=== PATIENT | male | born 1960 | race Two or more races ===

== ENCOUNTER → 2017-06-28 | Outpatient (REF) | payer MEDICAID, SELFPAY ==
[2017-06-28 17:00] LABS: ALBUMIN/GLOBULIN RATIO 1.25 (1.00-1.93); ALKALINE PHOSPHATASE 78 U/L (45-117); ALT/SGPT 26 U/L (12-78); ANION GAP 8 MEQ/L (8-16); AST/SGOT 15 U/L (15-37); BILIRUBIN,TOTAL 0.4 MG/DL (0.2-1.0); BLOOD UREA NITROGEN 18 MG/DL (7-18); CALCIUM LEVEL 8.9 MG/DL (8.5-10.1); CARBON DIOXIDE LEVEL 30 MEQ/L (21-32); CHLORIDE LEVEL 106 MEQ/L (98-107); CHOLESTEROL LEVEL 201 MG/DL (<200); CREATININE FOR GFR 0.75 MG/DL (0.70-1.30); GLOMERULAR FILTRATION RATE > 60.0 (>56); GLUCOSE, FASTING 131 MG/DL (70-105); POTASSIUM SERUM 3.8 MEQ/L (3.5-5.1); SODIUM LEVEL 144 MEQ/L (136-145); TOTAL PROTEIN 7.2 GM/DL (6.4-8.2); TRIGLYCERIDES LEVEL 138 MG/DL (<150)
[2017-06-28 19:00] LABS: MEAN CORPUSCULAR HEMOGLOBIN 34.1 pg (27.0-33.0); MEAN CORPUSCULAR HGB CONC 35.9 g/dl (32.0-36.5); MEAN CORPUSCULAR VOLUME 95.1 fl (80.0-96.0); RED CELL DISTRIBUTION WIDTH 11.7 % (11.5-14.5); WHITE BLOOD COUNT 9.2 K/mm3 (4.0-10.0)
== END ==
LOC: M SFHCLERA 14:51
PROVIDERS: ATTEND Family Medicine
DX: I61.9 Nontraumatic intracerebral hemorrhage, unspecified (principal); E11.21 Type 2 diabetes mellitus with diabetic nephropathy; I10 Essential (primary) hypertension

== ENCOUNTER → 2017-07-12 | Outpatient (REF) | payer MEDICAID, SELFPAY | LOC: M SFHCLERA 14:19 | PROVIDERS: ATTEND Family Medicine | DX: Z11.1 Encounter for screening for respiratory tuberculosis (principal) ==

== ENCOUNTER → 2017-10-24 | Outpatient (REF) | payer MEDICAID ==
[2017-10-24 18:07] LABS: HEMOGLOBIN 15.2 g/dl (14.0-18.0); MEAN CORPUSCULAR HEMOGLOBIN 32.7 pg (27.0-33.0); MEAN CORPUSCULAR HGB CONC 34.5 g/dl (32.0-36.5); MEAN CORPUSCULAR VOLUME 94.6 fl (80.0-96.0); PLATELET COUNT, AUTOMATED 291 10^3/uL (150-450); RED BLOOD COUNT 4.65 10^6/uL (4.30-6.10); RED CELL DISTRIBUTION WIDTH 11.9 % (11.5-14.5); WHITE BLOOD COUNT 9.2 10^3/uL (4.0-10.0)
[2017-10-24 19:05] LABS: ALBUMIN 4.1 GM/DL (3.2-5.2); ALBUMIN/GLOBULIN RATIO 1.05 (1.00-1.93); ALKALINE PHOSPHATASE 93 U/L (45-117); ALT/SGPT 24 U/L (12-78); ANION GAP 4 MEQ/L (8-16); AST/SGOT 18 U/L (7-37); BILIRUBIN,TOTAL 0.5 MG/DL (0.2-1.0); BLOOD UREA NITROGEN 14 MG/DL (7-18); CALCIUM LEVEL 9.2 MG/DL (8.5-10.1); CARBON DIOXIDE LEVEL 34 MEQ/L (21-32); CHLORIDE LEVEL 105 MEQ/L (98-107); CHOLESTEROL LEVEL 164 MG/DL (<200); CHOLESTEROL RISK RATIO 2.928 (<5); CREATININE FOR GFR 0.75 MG/DL (0.70-1.30); GLOMERULAR FILTRATION RATE > 60.0 (>56); GLUCOSE, FASTING 82 MG/DL (70-105); HDL CHOLESTEROL 56 MG/DL (>40); LDL CHOLESTEROL 77.4 MG/DL (<100); NON-HDL-C 108 MG/DL; POTASSIUM SERUM 4.1 MEQ/L (3.5-5.1); SODIUM LEVEL 143 MEQ/L (136-145); TRIGLYCERIDES LEVEL 153 MG/DL (<150)
== END ==
LOC: M SFHCLERA 14:22
DX: F33.0 Major depressive disorder, recurrent, mild (principal); E78.2 Mixed hyperlipidemia; I10 Essential (primary) hypertension

== ENCOUNTER → 2017-12-21 | Outpatient (REF) | payer MEDICAID ==
[2017-12-21 20:55] LABS: ALBUMIN 4.3 GM/DL (3.2-5.2); ALBUMIN/GLOBULIN RATIO 1.34 (1.00-1.93); ALKALINE PHOSPHATASE 83 U/L (45-117); ALT/SGPT 22 U/L (12-78); AST/SGOT 19 U/L (7-37); BILIRUBIN,DIRECT 0.1 MG/DL (0.0-0.2); BILIRUBIN,TOTAL 0.4 MG/DL (0.2-1.0); TOTAL PROTEIN 7.5 GM/DL (6.4-8.2)
== END ==
LOC: M SFHCLERA 16:42
DX: B35.1 Tinea unguium (principal)

== ENCOUNTER 2018-01-02 09:32 | Outpatient (RCR) | payer MEDICAID | END 2018-01-13 | LOC: M ST 09:32 | DX: R47.1 Dysarthria and anarthria (principal) | CPT/HCPCS: 92507 ==

== ENCOUNTER → 2018-08-30 | Outpatient (REF) | payer MEDICAID ==
[2018-08-30 17:28] LABS: HEMATOCRIT 46.3 % (42.0-52.0); HEMOGLOBIN 16.2 g/dl (13.5-17.5); MEAN CORPUSCULAR HEMOGLOBIN 33.2 pg (27.0-33.0); MEAN CORPUSCULAR VOLUME 94.9 fl (80.0-96.0); PLATELET COUNT, AUTOMATED 305 10^3/uL (150-450); RED BLOOD COUNT 4.88 10^6/uL (4.30-6.10); RED CELL DISTRIBUTION WIDTH 11.5 % (11.5-14.5); WHITE BLOOD COUNT 9.8 10^3/uL (4.0-10.0)
[2018-08-30 17:36] LABS: ALBUMIN 4.2 GM/DL (3.2-5.2); ALKALINE PHOSPHATASE 92 U/L (45-117); ALT/SGPT 32 U/L (12-78); ANION GAP 5 MEQ/L (8-16); AST/SGOT 16 U/L (7-37); BILIRUBIN,TOTAL 0.5 MG/DL (0.2-1.0); BLOOD UREA NITROGEN 19 MG/DL (7-18); CALCIUM LEVEL 9.3 MG/DL (8.5-10.1); CARBON DIOXIDE LEVEL 27 MEQ/L (21-32); CHLORIDE LEVEL 106 MEQ/L (98-107); CHOLESTEROL LEVEL 152 MG/DL (<200); CHOLESTEROL RISK RATIO 3.707 (<5); CREATININE FOR GFR 0.88 MG/DL (0.70-1.30); GLOMERULAR FILTRATION RATE > 60.0 (>56); GLUCOSE, FASTING 121 MG/DL (70-100); HDL CHOLESTEROL 41 MG/DL (>40); LDL CHOLESTEROL 80 MG/DL (<100); NON-HDL-C 111 MG/DL; POTASSIUM SERUM 4.2 MEQ/L (3.5-5.1); PSA SCREENING 0.8 NG/ML (< 4.0); SODIUM LEVEL 138 MEQ/L (136-145); TOTAL PROTEIN 7.7 GM/DL (6.4-8.2); TRIGLYCERIDES LEVEL 157 MG/DL (<150)
[2018-08-30 18:53] LABS: ESTIMATED AVERAGE GLUCOSE 108 MG/DL (60-110); HEMOGLOBIN A1c 5.4 %
== END ==
LOC: M SFHCLERA 11:54
DX: Z12.5 Encounter for screening for malignant neoplasm of prostate (principal); I10 Essential (primary) hypertension

== ENCOUNTER → 2018-10-19 | Outpatient (CLI) | payer MEDICAID ==
--- NOTE | 2018-10-19 15:30 | REP ---
Chest two views HISTORY: Cough Comparison: None The lungs are clear. The heart is normal in size. The pulmonary vasculature is normal in appearance. The bony structure is intact. IMPRESSION: No acute disease. Electronically Signed by Burke Moreno MD 10/19/2018 03:22 P
== END ==
LOC: M LRY 11:52
PROVIDERS: ATTEND Nurse Practitioner Family
DX: R05 Cough (principal)

== ENCOUNTER 2018-11-30 08:34 | Day surgery (SDC) | payer MEDICAID ==
[~2018-11-30] VITALS: Ht 172.7 cm; Wt 67.9 kg
[~2018-11-30 08:34] MED LIST: AMLO5TAB6 PO; DIPH25CA PO; LISI-542 PO; LOVA20TA2 PO; MIRA3350 PO; MULT1TAB10 PO; STOO100C PO
[2018-11-30] MEDS ORDERED: NS 1,000 ML IV ONE (10:00)
[2018-11-30] MEDS ORDERED: PROPOFOL 200 MG/20 ML VIAL As Ordered ONE (10:02)
[2018-11-30] MEDS ORDERED: LIDOCAINE 2% INJ 100 MG/5 ML SDV (FOR ANES.) As Ordered ONE (10:02)
[2018-11-30] MEDS ORDERED: PHENYLephrine HCL 500 MCG/5 ML (100MCG/ML) SYRINGE (J2370) As Ordered ONE (11:10)
--- NOTE | 2018-11-30 11:31 | ROOR ---
Patient Name: Ivan Medel Procedure Date: 11/30/2018 10:56 AM Date of : 1960 Age: 58 Room: [facility] Gender: Male Note Status: Finalized Procedure: Colonoscopy Indications: Screening for colorectal malignant neoplasm Providers: Inderjit Garibay MD Referring MD: Tyron CROOKS MD Requesting Provider: Medicines: Monitored Anesthesia Care Complications: No immediate complications. Procedure: Pre-Anesthesia Assessment: - Prior to the procedure, a History and Physical was performed, and patient medications and allergies were reviewed. The patient is competent. The risks and benefits of the procedure and the sedation options and risks were discussed with the patient. All questions were answered and informed consent was obtained. Patient identification and proposed procedure were verified by the physician, the nurse and the anesthesiologist in the procedure room. Mental Status Examination: alert and oriented. Airway Examination: normal oropharyngeal airway and neck mobility. Respiratory Examination: clear to auscultation. CV Examination: normal. Prophylactic Antibiotics: The patient does not require prophylactic antibiotics. Prior Anticoagulants: The patient has taken no previous anticoagulant or antiplatelet agents. ASA Grade Assessment: III - A patient with severe systemic disease. After reviewing the risks and benefits, the patient was deemed in satisfactory condition to undergo the procedure. The anesthesia plan was to use monitored anesthesia care (MAC). Immediately prior to administration of medications, the patient was re-assessed for adequacy to receive sedatives. The heart rate, respiratory rate, oxygen saturations, blood pressure, adequacy of pulmonary ventilation, and response to care were monitored throughout the procedure. The physical status of the patient was re-assessed after the procedure. The Colonoscope was introduced through the anus and advanced to the terminal ileum, with identification of the appendiceal orifice and IC valve. The colonoscopy was performed without difficulty. The patient tolerated the procedure well. The quality of the bowel preparation was good. The terminal ileum, ileocecal valve, appendiceal orifice, and rectum were photographed. Scope insertion time was 3 minutes. Scope withdrawal time was 9 minutes. The total duration of the procedure was 12 minutes. Findings: The perianal and digital rectal examinations were normal. A 4 mm polyp was found in the ascending colon. The polyp was sessile. The polyp was removed with a jumbo cold forceps. Resection and retrieval were complete. Verification of patient identification for the specimen was done by the physician and nurse using the patient's name, date and medical record number. Estimated blood loss was minimal. A 3 mm polyp was found in the descending colon. The polyp was sessile. The polyp was removed with a jumbo cold forceps. Resection and retrieval were complete. Scattered small and large-mouthed diverticula were found from sigmoid to ascending colon. There was no evidence of diverticular bleeding. Non-bleeding external and internal hemorrhoids were found during retroflexion. The hemorrhoids were small. Impression: - One 4 mm polyp in the ascending colon, removed with a jumbo cold forceps. Resected and retrieved. - One 3 mm polyp in the descending colon, removed with a jumbo cold forceps. Resected and retrieved. - Moderate diverticulosis from sigmoid to ascending colon. There was no evidence of diverticular bleeding. - Non-bleeding external and internal hemorrhoids. Recommendation: - Patient has a contact number available for emergencies. The signs and symptoms of potential delayed complications were discussed with the patient. Return to normal activities tomorrow. Written discharge instructions were provided to the patient. - High fiber diet. - Continue present medications. - Await pathology results. - Repeat colonoscopy in 5-10 years for surveillance based on pathology results. - Based on the biopsy results you will receive a phone call from GI clinic in 2-3 weeks to review the pathology results AND/OR your results will be faxed to your Primary care physician. - Return to primary care physician. Inderjit Garibay MD Inderjit Garibay MD 11/30/2018 11:31:20 AM This report has been signed electronically. Number of Addenda: 0 Note Initiated On: 11/30/2018 10:56 AM Estimated Blood Loss: Estimated blood loss was minimal.
[2018-11-30 11:45] VITALS: BP 139/90
== END 2018-11-30 11:56 | disposition home or self-care (01) ==
LOC: M OPP 08:34
PROVIDERS: ATTEND Internal Medicine Gastroenterology
DX: Z12.11 Encounter for screening for malignant neoplasm of colon (principal); D12.2 Benign neoplasm of ascending colon; D12.4 Benign neoplasm of descending colon; K57.30 Diverticulosis of large intestine without perforation or abscess without bleeding; K64.8 Other hemorrhoids; R12 Heartburn; F32.9 Major depressive disorder, single episode, unspecified; J44.9 Chronic obstructive pulmonary disease, unspecified; Z79.899 Other long term (current) drug therapy; Z86.79 Personal history of other diseases of the circulatory system
CPT/HCPCS: 45380; 88305; J2370

== ENCOUNTER 2019-01-09 12:47 | Outpatient (RCR) | payer MEDICAID | END 2019-01-13 | LOC: M PT 12:47 | PROVIDERS: ATTEND Family Medicine | DX: Z51.89 Encounter for other specified aftercare (principal); I69.151 Hemiplegia and hemiparesis following nontraumatic intracerebral hemorrhage affecting right dominant side ==

== ENCOUNTER → 2019-01-09 | Outpatient (CLI) | payer MEDICAID ==
[2019-01-09 14:57] LABS: ALBUMIN 4.4 GM/DL (3.2-5.2); ALT/SGPT 31 U/L (12-78); BILIRUBIN,TOTAL 0.5 MG/DL (0.2-1.0); BLOOD UREA NITROGEN 17 MG/DL (7-18); CALCIUM LEVEL 9.5 MG/DL (8.5-10.1); CARBON DIOXIDE LEVEL 27 MEQ/L (21-32); CHLORIDE LEVEL 106 MEQ/L (98-107); CHOLESTEROL LEVEL 140 MG/DL (<200); CHOLESTEROL RISK RATIO 2.916 (<5); CREATININE FOR GFR 0.94 MG/DL (0.70-1.30); GLOMERULAR FILTRATION RATE > 60.0 (>56); GLUCOSE, FASTING 95 MG/DL (70-100); HDL CHOLESTEROL 48 MG/DL (>40); LDL CHOLESTEROL 71 MG/DL (<100); NON-HDL-C 92 MG/DL; POTASSIUM SERUM 4.6 MEQ/L (3.5-5.1); SODIUM LEVEL 140 MEQ/L (136-145); TOTAL PROTEIN 7.7 GM/DL (6.4-8.2); TRIGLYCERIDES LEVEL 107 MG/DL (<150)
== END ==
LOC: M LAB 14:02
PROVIDERS: ATTEND Family Medicine
DX: I10 Essential (primary) hypertension (principal)

== ENCOUNTER 2019-01-23 13:45 | Outpatient (RCR) | payer MEDICAID, SELFPAY | END 2019-02-12 | LOC: M OT 13:45 | PROVIDERS: ATTEND Family Medicine | DX: I69.151 Hemiplegia and hemiparesis following nontraumatic intracerebral hemorrhage affecting right dominant side (principal) ==

== ENCOUNTER → 2019-05-28 | Outpatient (REF) | payer MEDICARE ==
[~2019-05-28] MED LIST changes: -DIPH25CA PO; +DIPH25CA32 PO; +MM S100C PO; -STOO100C PO
[2019-05-28 17:03] LABS: ALBUMIN 4.1 GM/DL (3.2-5.2); ALT/SGPT 23 U/L (12-78); BILIRUBIN,TOTAL 0.4 MG/DL (0.2-1.0); BLOOD UREA NITROGEN 23 MG/DL (7-18); CALCIUM LEVEL 9.5 MG/DL (8.5-10.1); CARBON DIOXIDE LEVEL 25 MEQ/L (21-32); CHLORIDE LEVEL 110 MEQ/L (98-107); CHOLESTEROL LEVEL 162 MG/DL (<200); CHOLESTEROL RISK RATIO 3.176 (<5); CREATININE FOR GFR 1.02 MG/DL (0.70-1.30); GLOMERULAR FILTRATION RATE > 60.0 (>56); GLUCOSE, FASTING 116 MG/DL (70-100); HDL CHOLESTEROL 51 MG/DL (>40); LDL CHOLESTEROL 65 MG/DL (<100); NON-HDL-C 111 MG/DL; SODIUM LEVEL 142 MEQ/L (136-145); TOTAL PROTEIN 7.3 GM/DL (6.4-8.2); TRIGLYCERIDES LEVEL 229 MG/DL (<150)
== END ==
LOC: M SFHCLERA 13:52
PROVIDERS: ATTEND Family Medicine
DX: I10 Essential (primary) hypertension (principal)
CPT/HCPCS: 80053; 80061; G0463

== ENCOUNTER → 2019-12-19 | Outpatient (REF) | payer MEDICARE ==
[2019-12-19 17:01] LABS: BLOOD UREA NITROGEN 17 MG/DL (7-18); CALCIUM LEVEL 9.4 MG/DL (8.5-10.1); CARBON DIOXIDE LEVEL 27 MEQ/L (21-32); CHLORIDE LEVEL 104 MEQ/L (98-107); CHOLESTEROL LEVEL 193 MG/DL (<200); CHOLESTEROL RISK RATIO 4.488 (<5); CREATININE FOR GFR 0.79 MG/DL (0.70-1.30); GLOMERULAR FILTRATION RATE > 60.0 (>56); GLUCOSE, FASTING 93 MG/DL (70-100); HDL CHOLESTEROL 43 MG/DL (>40); LDL CHOLESTEROL 124 MG/DL (<100); NON-HDL-C 150 MG/DL; POTASSIUM SERUM 4.5 MEQ/L (3.5-5.1); SODIUM LEVEL 137 MEQ/L (136-145); TRIGLYCERIDES LEVEL 130 MG/DL (<150)
[2019-12-19 17:23] LABS: HEMOGLOBIN A1c 5.5 %
[2019-12-19 17:37] LABS: MALB URINE SIEMENS 33.8 MG/L
== END ==
LOC: M SFHCLERA 10:55
PROVIDERS: ATTEND Family Medicine
DX: I10 Essential (primary) hypertension (principal); E78.5 Hyperlipidemia, unspecified; Z79.899 Other long term (current) drug therapy
CPT/HCPCS: 80048; 80061; 82043; 83036; G0463